=== PATIENT | female | born 1975 | race Two or more races ===

== ENCOUNTER 2024-05-28 13:25 | Outpatient (RCR) | payer MEDICAID, SELFPAY ==
[2024-05-28 15:01] LABS: HCG,Qualitative Serum Negative
== END 2024-06-01 23:59 | disposition home or self-care (01) ==
LOC: SCTC 13:25
PROVIDERS: PCP Physician Assistant; Referring Provider Physician Assistant; Visit Provider Nurse Practitioner Family
DX: D50.9 Iron deficiency anemia, unspecified (principal); Z87.42 Personal history of other diseases of the female genital tract
CPT/HCPCS: 84703; 96365; 96375; 99212; J2919; J3490; J7040; J7050; Q0138; G0463

== ENCOUNTER 2024-06-04 13:56 | Outpatient (RCR) | payer MEDICAID, SELFPAY | END 2024-06-29 23:59 | disposition home or self-care (01) | LOC: SCTC 13:56 | PROVIDERS: PCP Physician Assistant; Referring Provider Physician Assistant; Visit Provider Nurse Practitioner Family | DX: D50.9 Iron deficiency anemia, unspecified (principal); N92.6 Irregular menstruation, unspecified | CPT/HCPCS: 96365; 96375; J2919; J3490; J7050; Q0138 ==

== ENCOUNTER 2024-07-02 15:34 | Outpatient (RCR) | payer MEDICAID, SELFPAY | END 2024-07-30 23:59 | disposition home or self-care (01) | LOC: SCTC 15:34 | PROVIDERS: PCP Physician Assistant; Referring Provider Physician Assistant; Visit Provider Nurse Practitioner Family | DX: Z09 Encounter for follow-up examination after completed treatment for conditions other than malignant neoplasm (principal); Z86.2 Personal history of diseases of the blood and blood-forming organs and certain disorders involving the immune mechanism | CPT/HCPCS: 99212; G0463 ==

== ENCOUNTER 2024-08-30 15:45 | Outpatient (RCR) | payer MEDICAID, SELFPAY | END 2024-09-29 23:59 | disposition home or self-care (01) | LOC: SCTC 15:45 | PROVIDERS: PCP Physician Assistant; Referring Provider Physician Assistant; Visit Provider Nurse Practitioner Family | DX: Z09 Encounter for follow-up examination after completed treatment for conditions other than malignant neoplasm (principal); Z86.2 Personal history of diseases of the blood and blood-forming organs and certain disorders involving the immune mechanism | CPT/HCPCS: 99212; G0463 ==